=== PATIENT | female | born 1940 | race Caucasian/White ===

== ENCOUNTER → 2018-04-25 | Outpatient (CLI) | payer MEDICARE, BC ==
[2015-10-09 14:55] VITALS: BP 133/68
[~2018-04-25] MED LIST: CALC-98 PO; COLE1TAB2 PO; CYAN10005 PO; DOCU-109 PO; GINK30CA PO; GLUC-99 PO; HYDR-2761 PO; LISI10TA2 PO; MULT-246 PO; RANI-376 PO; RANI150T2 PO; SERT50TA PO; VITA200C28 PO
--- NOTE | 2018-04-25 13:51 | CARD ---
MR#: [id number] Date of Study: 04/25/2018 Ordering Physician: JUSTIN UREÑA, Referring Physician: JUSTIN UREÑA, Tech: Shazia Gomes APPROVED REPORT EXAM: Two-dimensional and M-mode echocardiogram with Doppler and color Doppler. Other Information Quality : AverageHR: 71bpm INDICATION Palpitations Murmur RISK FACTORS Hypertension Hyperlipidemia Previous smoker 2D DIMENSIONS RVDd2.6 (2.9-3.5cm)Left Atrium(2D)2.4 (1.6-4.0cm) IVSd1.1 (0.7-1.1cm)Aortic Root(2D)3.0 (2.0-3.7cm) LVDd4.7 (3.9-5.9cm)LVOT Diameter2.0 (1.8-2.4cm) PWd1.1 (0.7-1.1cm)LVDs3.0 (2.5-4.0cm) FS (%) 34.8 %SV64.4 ml LVEF(%)64.0 (>50%) Aortic Valve AoV Peak Alexandru.143.5cm/sAoV VTI31.0cm AO Peak GR.8.2mmHgLVOT Peak Alexandru.95.6cm/s LVOT VTI 20.42cmAO Mean GR.5mmHg RL (VMAX)1.48wc7SMG (VTI)2.11cm2 Mitral Valve MV E Vquwtrqk14.9cm/sMV DECEL WXGC329ij MV A Dznxpgee225.3cm/sMV UNS59my E/A Ratio0.9MVA (PHT)3.17cm2 TDI E/Lateral E'9.6E/Medial E'10.5 Pulmonary Valve PV Peak Rofaupos812.6cm/sPV Peak Grad.6mmHg Tricuspid Valve TR P. Naujdewt148al/sRAP ETDFAAFX1gkLt TR Peak Gr.94saCfRKXI25ejVc Pulmonary Vein S1 Upihzjie72.2cm/sD2 Gfqaqjur24.0cm/s PVa geriotxr311jnph LEFT VENTRICLE The left ventricle is normal size. There is borderline concentric left ventricular hypertrophy. The l eft ventricular systolic function is normal. The Ejection Fraction is 60%. There is normal LV segment al wall motion. Transmitral Doppler flow pattern is Grade I-abnormal relaxation pattern. RIGHT VENTRICLE The right ventricle is normal size. There is normal right ventricular wall thickness. The right ventr icular systolic function is normal. ATRIA The left atrium size is normal. The right atrium size is normal. Interatrial septum is thickened. AORTIC VALVE The aortic valve is normal in structure and function. Doppler and Color Flow revealed no significant aortic regurgitation. There is no significant aortic valvular stenosis. MITRAL VALVE The mitral valve is normal in structure and function. There is no evidence of mitral valve prolapse. There is no mitral valve stenosis. Doppler and Color-flow revealed trace mitral regurgitation. TRICUSPID VALVE The tricuspid valve is normal in structure and function. Doppler and Color Flow revealed trace to mil d tricuspid regurgitation. There is no tricuspid valve stenosis. PULMONIC VALVE The pulmonic valve is not well visualized. Doppler and Color Flow revealed trace pulmonic valvular re gurgitation. GREAT VESSELS The aortic root is normal in size. The IVC is dilated and collapses >50% with inspiration. PERICARDIAL EFFUSION There is no evidence of significant pericardial effusion. Critical Notification Critical Value: No <Conclusion> The left ventricular systolic function is normal. The Ejection Fraction is 60%. There is normal LV segmental wall motion. Transmitral Doppler flow pattern is Grade I-abnormal relaxation pattern. Trace mitral regurgitation. Trace to mild tricuspid regurgitation. There is no evidence of significant pericardial effusion. Signed by : Deacon Jeff, Electronically Approved : 04/25/2018 13:51:10
== END | disposition home or self-care (01) ==
LOC: ECHO 10:49
PROVIDERS: ATTEND Internal Medicine Cardiovascular Disease
DX: I11.9 Hypertensive heart disease without heart failure (principal); E78.5 Hyperlipidemia, unspecified; R00.8 Other abnormalities of heart beat; Z87.891 Personal history of nicotine dependence
CPT/HCPCS: 93306

== ENCOUNTER → 2020-06-22 | Outpatient (CLI) | payer BC, MEDICARE ==
[2015-10-09 14:55] VITALS: BP 133/68
[~2020-06-22] MED LIST changes: +CYAN-25 PO; -CYAN10005 PO; +LISI10TA16 PO; -LISI10TA2 PO
--- NOTE | 2020-06-22 15:50 | CARD ---
MR#: [id number] Date of Study: 06/22/2020 Ordering Physician: ANT MORENO, Referring Physician: ANT MORENO, Tech: Rianna Mayfield [facility] APPROVED REPORT EXAM: Two-dimensional and M-mode echocardiogram with Doppler and color Doppler. Other Information Quality : AverageHR: 77bpm Rhythm : NSR INDICATION Palpitations RISK FACTORS Hypertension Obesity Hyperlipidemia 2D DIMENSIONS RVDd2.8 (2.9-3.5cm)Left Atrium(2D)4.5 (1.6-4.0cm) IVSd1.2 (0.7-1.1cm)Aortic Root(2D)3.1 (2.0-3.7cm) LVDd3.9 (3.9-5.9cm)LVOT Diameter2.1 (1.8-2.4cm) PWd1.3 (0.7-1.1cm)LVDs2.8 (2.5-4.0cm) FS (%) 27.7 %SV35.1 ml LVEF(%)54.5 (>50%) Aortic Valve AoV Peak Alexandru.160.2cm/sAoV VTI38.2cm AO Peak GR.10.3mmHgLVOT Peak Alexandru.113.7cm/s AO Mean GR.5mmHgAVA (VMAX)2.46cm2 Mitral Valve MV E Xpksrpxf53.6cm/sMV DECEL MREE676tj MV A Htxrwhlt475.2cm/sE/A Ratio0.8 Pulmonary Valve PV Peak Sofndjvg497.7cm/s Tricuspid Valve TR P. Rcgkyvjr151kq/sTR Peak Gr.29mmHg Pulmonary Vein S1 Shtxpixc25.7cm/sD2 Oqwcmtbi67.8cm/s PVa fsjaifdf176xavu LEFT VENTRICLE The left ventricle is normal size. There is mild concentric left ventricular hypertrophy. The left ve ntricular systolic function is normal and the ejection fraction is within normal range. Estimated eje ction fraction 60-65%. There is normal LV segmental wall motion. The left ventricular diastolic funct ion and filling is normal for age. RIGHT VENTRICLE The right ventricle is normal size. There is normal right ventricular wall thickness. The right ventr icular systolic function is normal. ATRIA The left atrium size is normal. The right atrium size is normal. The interatrial septum is intact wit h no evidence for an atrial septal defect or patent foramen ovale as noted on 2-D or Doppler imaging. AORTIC VALVE The aortic valve is normal in structure and function. Doppler and Color Flow revealed no significant aortic regurgitation. There is no significant aortic valvular stenosis. MITRAL VALVE The mitral valve is normal in structure and function. There is no evidence of mitral valve prolapse. There is no mitral valve stenosis. Doppler and Color-flow revealed mild mitral regurgitation. TRICUSPID VALVE The tricuspid valve is normal in structure and function. Doppler and Color Flow revealed mild tricusp id regurgitation. Estimated PAP 32 mmHg. There is no tricuspid valve stenosis. PULMONIC VALVE Doppler and Color Flow revealed mild pulmonic valvular regurgitation. There is no pulmonic valvular s tenosis. GREAT VESSELS The aortic root is normal in size. The ascending aorta is normal in size. The IVC is normal in size a nd collapses >50% with inspiration. PERICARDIAL EFFUSION There is no evidence of significant pericardial effusion. Critical Notification Critical Value: No <Conclusion> The left ventricular systolic function is normal and the ejection fraction is within normal range. E stimated ejection fraction 60-65%. There is normal LV segmental wall motion. Signed by : Ant Moreno, Electronically Approved : 06/22/2020 15:50:07
== END ==
LOC: ECHO 09:51
PROVIDERS: ATTEND Internal Medicine Cardiovascular Disease
DX: I08.8 Other rheumatic multiple valve diseases (principal); I11.9 Hypertensive heart disease without heart failure
CPT/HCPCS: 93306

== ENCOUNTER → 2020-09-18 | Outpatient (CLI) | payer MEDICARE, BC ==
[2015-10-09 14:55] VITALS: BP 133/68
--- NOTE | 2020-09-18 15:06 | RAD ---
EXAM: Left index finger, 3 views. HISTORY: Digital mucous cyst. COMPARISON: None. FINDINGS: 3 views of the left index finger are obtained. There is slight ulnar deviation of the secon d and third distal phalanges and radial deviation of the fifth distal phalanx. There is associated albert int space narrowing due to osteoarthritis at these levels. There is soft tissue swelling involving th e dorsal distal second phalange at the base of the distal phalanx. No foreign body is seen. There is internal fixation of a healed distal radial metaphyseal fracture. 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 There is mild first carpometacarpal joint and metacarpophalangeal joint osteoarthri tis. IMPRESSION: 1. Soft tissue swelling along the distal dorsal aspect of the second phalange, at the proximal aspect of the distal phalanx. No foreign body or fracture is seen. 2. Mild wrist and hand osteoarthritis, described above. 3. Internal fixation of a healed distal radial fracture. There is also a chronic nonunited ulnar styl oid fracture. Electronically signed by: Shasha Fraser MD (09/18/2020 3:04 PM) [id number]
== END ==
LOC: RAD 14:05
PROVIDERS: ATTEND Plastic Surgery
DX: S52.612A Displaced fracture of left ulna styloid process, initial encounter for closed fracture (principal); M19.042 Primary osteoarthritis, left hand; M19.032 Primary osteoarthritis, left wrist; M67.442 Ganglion, left hand; M79.89 Other specified soft tissue disorders; X58.XXXA Exposure to other specified factors, initial encounter; Y93.9 Activity, unspecified; Y92.89 Other specified places as the place of occurrence of the external cause; Y99.8 Other external cause status
CPT/HCPCS: 73140

== ENCOUNTER → 2020-10-30 | Outpatient (CLI) | payer MEDICARE ==
[2015-10-09 14:55] VITALS: BP 133/68
[~2020-10-30] MED LIST changes: +ACET325T9 PO; +IBUP-1007 PO; +LOSA-73 PO
== END ==
LOC: LAB 12:07
PROVIDERS: ATTEND Plastic Surgery
DX: Z01.812 Encounter for preprocedural laboratory examination (principal); Z20.822 Contact with and (suspected) exposure to COVID-19; M67.442 Ganglion, left hand
CPT/HCPCS: U0003; U0005

== ENCOUNTER 2020-11-02 11:13 | Day surgery (SDC) | payer MEDICARE ==
[~2020-11-02] VITALS: Ht 157.5 cm; Wt 69.5 kg
[~2020-11-02 11:13] MED LIST changes: -ACET325T9 PO; +HYDROmorphone 2 MG/ML VIAL IVP PRN; -IBUP-1007 PO; +IV RINGERS,LACTATED 1000ML 1,000 ML IV SCH; +LIDOCAINE 1% PF 30 ML VIAL. ONE; -LOSA-73 PO; +MORPHINE SULFATE 2 MG/ML INJ. IVP PRN; +PROCHLORPERAZINE 10 MG/2 ML VIAL. IVP PRN; +ceFAZolin SODIUM IV Push 1 GM VIAL. IVP PRN; +fentaNYL PF VIAL 100 MCG/2 ML VIAL IVP PRN
[2020-11-02] MEDS ORDERED: DEXAMETHASONE SOD PHOS 4 MG/ML VIAL ONE (11:36)
[2020-11-02] MEDS ORDERED: LIDOCAINE 2% PF 5 ML VIAL. ONE (11:36)
[2020-11-02] MEDS ORDERED: PROPOFOL 10 MG/ML (20ML) VIAL. IV ONE (11:36)
[2020-11-02] MEDS ORDERED: ONDANSETRON PF 4 MG/2 ML VIAL. ONE (11:36)
[2020-11-02] MEDS ORDERED: fentaNYL PF VIAL 100 MCG/2 ML VIAL ONE (11:37)
[2020-11-02] MEDS ORDERED: LOSA-73 PO (12:07)
[2020-11-02] MEDS ORDERED: ceFAZolin SODIUM IV Push 1 GM VIAL. IVP ONE (13:11)
[2020-11-02] MEDS ORDERED: BACITRACIN TOPICAL OINT PACKET. TP ONE (13:31)
[2020-11-02 14:22] VITALS: BP 164/75
[2020-11-02] MEDS ORDERED: ACET325T9 PO (14:31)
[2020-11-02] MEDS ORDERED: IBUP-1007 PO (14:32)
--- NOTE | 2020-11-02 14:52 | PDOC4 ---
OPERATIVE NOTE Date: Date: Nov 02, 2020 Pre-Op Diagnosis: Digital mucous cyst of the left index finger Post-Op Diagnosis: Same Procedure Performed: Excision digital mucous cyst of left index finger Surgeon: Taina Dexter MD Anesthesia Type: Sedation with digital block Blood Loss: Minimal Specimans Obtained: None Findings: See operative note Complications: None Operative Note: Indication This is an 80-year-old female with pain and a recurrent digital mucous cyst of her left index finger. The patient understands the benefits, alternatives, as well as the risks of bleeding, infection, joint sepsis, wound healing concerns, injury to surrounding tendons, vessels, nerves, need for additional procedures and desires to proceed. Procedure Informed consent was obtained in the perioperative holding area and the presence of the patient's daughter. The patient was brought to the operating room where a timeout was performed to identify the patient and the procedure. SCDs were in place and functioning. 2 g of Ancef were given intravenously. The patient was sedated. A digital block was performed with 1% plain lidocaine. A tourniquet was fashioned to the left finger. A vertical incision was made just radial to the digital mucous cyst. Dissection was taken down through the subcutaneous tissues to the region between the extensor tendon and the collateral ligament. An incision was made just overlying the DIP joint at this level and a rongeur was used to remove osteophytes. Dissection proceeded to identify the stalk of the cystic sac. The stalk was identified and excised as was the base of the cyst. The roof of the cyst was left intact due to its attachment to the overlying attenuated skin. The area was irrigated with saline. Hemostasis was assured prior to closure of the skin with 5-0 nylon simple interrupted sutures and 5-0 chromic along the area of the nailbed. The patient tolerated the procedure well was transferred to the PACU in stable condition. TAINA DEXTER MD Nov 02, 2020 14:52
== END 2020-11-02 15:02 | disposition home or self-care (01) ==
LOC: SURG 11:13
PROVIDERS: ATTEND Plastic Surgery
DX: M67.442 Ganglion, left hand (principal); M25.742 Osteophyte, left hand; I10 Essential (primary) hypertension; J44.9 Chronic obstructive pulmonary disease, unspecified; K21.9 Gastro-esophageal reflux disease without esophagitis; M19.90 Unspecified osteoarthritis, unspecified site; M81.0 Age-related osteoporosis without current pathological fracture; F41.9 Anxiety disorder, unspecified; Z87.891 Personal history of nicotine dependence; Z90.49 Acquired absence of other specified parts of digestive tract; Z98.890 Other specified postprocedural states; Z79.899 Other long term (current) drug therapy; Z91.041 Radiographic dye allergy status; Z91.040 Latex allergy status; Z88.2 Allergy status to sulfonamides; Z88.6 Allergy status to analgesic agent
CPT/HCPCS: 26160; 64450; A4930; J0690; J2405; J2704; J3010; J3490; J1100

== ENCOUNTER 2021-04-09 10:11 | Emergency (ER) | payer MEDICARE ==
[~2021-04-09] VITALS: Ht 154.9 cm; Wt 67.7 kg
[~2021-04-09 10:11] MED LIST changes: +ACET325T9 PO; -HYDROmorphone 2 MG/ML VIAL IVP PRN; +IBUP-1007 PO; -IV RINGERS,LACTATED 1000ML 1,000 ML IV SCH; -LIDOCAINE 1% PF 30 ML VIAL. ONE; +LOSA-73 PO; -MORPHINE SULFATE 2 MG/ML INJ. IVP PRN; -PROCHLORPERAZINE 10 MG/2 ML VIAL. IVP PRN; -ceFAZolin SODIUM IV Push 1 GM VIAL. IVP PRN; -fentaNYL PF VIAL 100 MCG/2 ML VIAL IVP PRN
[2021-04-09 10:59] LABS: BASO % 0 % (0-3); EOS # 0.2 x10^3/uL (0.0-0.7); EOS % 2 % (0-3); HEMATOCRIT 45.1 % (36.0-47.0); HEMOGLOBIN 14.5 g/dL (12.0-15.5); LYMPH # 1.6 x10^3/uL (1.0-4.8); LYMPH % 15 % (24-48); MEAN CORPUSCULAR HEMOGLOBIN 30 pg (25-35); MEAN CORPUSCULAR HGB CONC 32 g/dL (31-37); MEAN CORPUSCULAR VOLUME 92 fL (79-100); MONO # 0.8 x10^3/uL (0.0-1.1); MONO % 8 % (0-9); NEUT % 75 % (31-73); PLATELET COUNT 232 x10^3/uL (140-400); RED BLOOD COUNT 4.91 x10^6/uL (3.50-5.40); RED CELL DISTRIBUTION WIDTH 13.4 % (11.5-14.5); WHITE BLOOD COUNT 10.7 x10^3/uL (4.0-11.0)
[2021-04-09 11:12] LABS: CALCIUM 8.6 mg/dL (8.5-10.1); GFR 53.1; POTASSIUM 3.9 mmol/L (3.5-5.1)
[2021-04-09 11:18] LABS: ALBUMIN 3.6 g/dL (3.4-5.0); ALBUMIN/GLOBULIN RATIO 1.1 (1.0-1.7); MAGNESIUM 2.1 mg/dL (1.8-2.4); TOTAL BILIRUBIN 0.5 mg/dL (0.2-1.0)
--- NOTE | 2021-04-09 12:07 | RAD ---
Single AP view of the chest. Comparison: None. Indication: Palpitations Findings: The heart is enlarged. There is no pneumothorax or effusion. No air space or interstitial disease. Impression: 1. No acute cardiopulmonary process. Electronically signed by: Weston Jennings MD (04/09/2021 12:05 PM) [id number]
--- NOTE | 2021-04-09 12:39 | PHYS DOC ---
Past Medical History Past Medical History: Anxiety, Hypertension Past Surgical History: Cholecystectomy Additional Past Surgical Histo: CATERACT REMOVAL, Smoking Status: Former Smoker Additional Information: STOPPED AT 48 YEARS OF AGE Alcohol Use: None General Adult EDM: Chief Complaint: Palpitations HPI: HPI: Patient is an 80-year-old female that presents today with palpitations. Patient states she was at a doctor's appointment today and felt that her heart racing, she then came here to the emergency department for further evaluation. Patient states she has had multiple episodes of this in the past and has worn a Holter monitor and that has not shown any abnormalities or arrhythmias, she states she saw cardiology approximately 1 year ago and they discharged her from her care. Patient denies chest pain, shortness of air, nausea or vomiting, or diaphoresis with these palpitations. Patient has a past medical history of hypertension, and she does take an aspirin a day. Review of Systems: Review of Systems: Constitutional: Denies fever or chills. [] Eyes: Denies change in visual acuity. [] HENT: Denies nasal congestion or sore throat. [] Respiratory: Denies cough or shortness of breath. [] Cardiovascular: Palpitations denies chest pain or edema. [] GI: Denies abdominal pain, nausea, vomiting, bloody stools or diarrhea. [] : Denies dysuria. [] Musculoskeletal: Denies back pain or joint pain. [] Integument: Denies rash. [] Neurologic: Denies headache, focal weakness or sensory changes. [] Endocrine: Denies polyuria or polydipsia. [] Lymphatic: Denies swollen glands. [] Psychiatric: Denies depression or anxiety. [] Heart Score: C/O Chest Pain: N/A Risk Factors: Risk Factors: DM, Current or recent (<one month) smoker, HTN, HLP, family history of CAD, obesity. Risk Scores: Score 0 - 3: 2.5% MACE over next 6 weeks - Discharge Home Score 4 - 6: 20.3% MACE over next 6 weeks - Admit for Clinical Observation Score 7 - 10: 72.7% MACE over next 6 weeks - Early Invasive Strategies Allergies: Allergies: Allergies Coded Allergies Type Severity Reaction Last Updated Verified Iodinated Contrast Media Allergy Intermediate 11/02/20 Yes Sulfa (Sulfonamide Antibiotics) Allergy Intermediate 11/02/20 Yes latex Allergy Intermediate 11/02/20 Yes morphine Adverse Reaction Intermediate Nausea, Vomiting 11/02/20 Yes Physical Exam: PE: Constitutional: Well developed, well nourished, no acute distress, non-toxic vin earance. [] HENT: Normocephalic, atraumatic, bilateral external ears normal, oropharynx moist, no oral exudates, nose normal. [] Eyes: PERRLA, EOMI, conjunctiva normal, no discharge. [] Neck: Normal range of motion, no tenderness, supple, no stridor. [] Cardiovascular: Sinus rhythm with an episode of tachycardia noted, appears to be A. fib on the telemetry strip Lungs & Thorax: Bilateral breath sounds clear to auscultation [] Abdomen: Bowel sounds normal, soft, no tenderness, no masses, no pulsatile masses. [] Skin: Warm, dry, no erythema, no rash. [] Back: No tenderness, no CVA tenderness. [] Extremities: No tenderness, no cyanosis, no clubbing, ROM intact, no edema. [] Neurologic: Alert and oriented X 3, normal motor function, normal sensory function, no focal deficits noted. [] Psychologic: Affect normal, judgement normal, mood normal. [] Current Patient Data: Labs: Laboratory Tests Test 04/09/21 10:50 White Blood Count 10.7 x10^3/uL (4.0-11.0) Red Blood Count 4.91 x10^6/uL (3.50-5.40) Hemoglobin 14.5 g/dL (12.0-15.5) Hematocrit 45.1 % (36.0-47.0) Mean Corpuscular Volume 92 fL (79-100) Mean Corpuscular Hemoglobin 30 pg (25-35) Mean Corpuscular Hemoglobin Concent 32 g/dL (31-37) Red Cell Distribution Width 13.4 % (11.5-14.5) Platelet Count 232 x10^3/uL (140-400) Neutrophils (%) (Auto) 75 % (31-73) H Lymphocytes (%) (Auto) 15 % (24-48) L Monocytes (%) (Auto) 8 % (0-9) Eosinophils (%) (Auto) 2 % (0-3) Basophils (%) (Auto) 0 % (0-3) Neutrophils # (Auto) 8.0 x10^3/uL (1.8-7.7) H Lymphocytes # (Auto) 1.6 x10^3/uL (1.0-4.8) Monocytes # (Auto) 0.8 x10^3/uL (0.0-1.1) Eosinophils # (Auto) 0.2 x10^3/uL (0.0-0.7) Basophils # (Auto) 0.0 x10^3/uL (0.0-0.2) Sodium Level 148 mmol/L (136-145) H Potassium Level 3.9 mmol/L (3.5-5.1) Chloride Level 110 mmol/L (98-107) H Carbon Dioxide Level 26 mmol/L (21-32) Anion Gap 12 (6-14) Blood Urea Nitrogen 14 mg/dL (7-20) Creatinine 1.0 mg/dL (0.6-1.0) Estimated GFR (Cockcroft-Gault) 53.1 BUN/Creatinine Ratio 14 (6-20) Glucose Level 94 mg/dL (70-99) Calcium Level 8.6 mg/dL (8.5-10.1) Magnesium Level 2.1 mg/dL (1.8-2.4) Total Bilirubin 0.5 mg/dL (0.2-1.0) Aspartate Amino Transferase (AST) 17 U/L (15-37) Alanine Aminotransferase (ALT) 31 U/L (14-59) Alkaline Phosphatase 92 U/L (46-116) Troponin I High Sensitivity 16 ng/L (4-50) OG-Vje-J-Type Natriuretic Peptide 534 pg/mL (0-449) H Total Protein 7.0 g/dL (6.4-8.2) Albumin 3.6 g/dL (3.4-5.0) Albumin/Globulin Ratio 1.1 (1.0-1.7) Laboratory Tests 04/09/21 10:50 Laboratory Tests 04/09/21 10:50 Vital Signs: Vital Signs Date Time Temp Pulse Resp B/P (MAP) Pulse Ox O2 Delivery O2 Flow Rate FiO2 04/09/21 13:14 72 22 141/67 (91) 97 Room Air 04/09/21 12:44 72 18 138/63 (88) 96 Room Air 2/25/22 12:14 86 24 136/62 (86) 96 Room Air 04/09/21 11:44 92 25 126/74 (91) 96 Room Air 04/09/21 11:16 98.1 94 20 142/65 (90) 97 Room Air 98.1 04/09/21 10:44 98.1 96 20 148/67 (94) 96 Room Air 98.1 04/09/21 10:29 98.1 105 16 139/67 (91) 97 Room Air 98.1 Vital Signs Date Time Temp Pulse Resp B/P (MAP) Pulse Ox O2 Delivery O2 Flow Rate FiO2 04/09/21 12:14 86 24 136/62 (86) 96 Room Air 04/09/21 11:16 98.1 98.1 EKG: EKG: [] Radiology/Procedures: Radiology/Procedures: REASON: palpations PROCEDURE: CHEST AP ONLY Single AP view of the chest. Comparison: None. Indication: Palpitations Findings: The heart is enlarged. There is no pneumothorax or effusion. No air space or interstitial disease. Impression: 1. No acute cardiopulmonary process. Electronically signed by: Weston Jennings MD (04/09/2021 12:05 PM) [id number][] Course & Med Decision Making: Course & Med Decision Making Pertinent Labs and Imaging studies reviewed. (See chart for details) [address] Mane from the cardiology service he recommends that the p atient be discharged home, and the office will follow up with her next week to get an appointment with Dr. Ervin next week for further management of these palpitations. Patient is to continue all her home medications as prescribed. I did speak to patient and family member at the bedside, patient denies chest pain, shortness of air, or any other feelings of palpitations while in the department, and they are agreeable to the plan of care and verbalized understanding. Dragon Disclaimer: Dragon Disclaimer: This electronic medical record was generated, in whole or in part, using a voice recognition dictation system. Departure Departure Impression: Primary Impression: Palpitations Disposition: 01 HOME / SELF CARE / HOMELESS Condition: STABLE Referrals: FINN ALDANA APRN (PCP) KIRK ERVIN MD Patient Instructions: Palpitations Additional Instructions: Continue your home medications as previously prescribed Dr. Ervin's office will call you on Monday to make a follow-up appointment next week Return to the emergency department if you experience palpitations that are associated with chest pain, shortness of air, sweats, or nausea and vomiting. DELIA CABRERA APRN Apr 09, 2021 12:39
[2021-04-09 13:14] VITALS: BP 141/67
--- NOTE | 2021-04-10 02:23 | EKG ---
[facility] [address] [place] [address] Test Date: 2021-04-09 Test Time: 10:16:04 Pat Name: TONO ROSSI Department: Room: Gender: F Verifying Specialist: : 1940 Requested By: DELIA CABRERA Order Number: [id number] Reading MD: Konrad Loja Measurements Intervals [place] Rate: 111 P: -56 [place]: 142 QRS: 28 QRSD: 82 T: 54 QT: 288 QTc: 395 Interpretive Statements SINUS TACHYCARDIA COMPLEX(ES) WITH ABERRANT INTRAVENTRICULAR CONDUCTION LEFT ATRIAL ABNORMALITY Electronically Signed On 04-11-2021 18:02:18 NETWORK DESKTOP SUPPORT SPECIALIST by Konrad Loja
== END 2021-04-09 13:27 | disposition home or self-care (01) ==
LOC: ER 10:11
DX: R00.2 Palpitations (principal); I10 Essential (primary) hypertension; F41.9 Anxiety disorder, unspecified; Z87.891 Personal history of nicotine dependence; Z88.2 Allergy status to sulfonamides; Z88.5 Allergy status to narcotic agent; Z91.040 Latex allergy status; Z91.041 Radiographic dye allergy status
CPT/HCPCS: 36415; 71045; 80053; 83735; 83880; 84484; 85025; 93005; 99285-25

== ENCOUNTER → 2021-05-05 | Outpatient (CLI) | payer MEDICARE ==
[2021-04-09 13:14] VITALS: BP 141/67
--- NOTE | 2021-05-05 15:46 | RAD ---
Left lower extremity venous duplex study Clinical History: Lower extremity pain Technique: Using a combination of real time ultrasound imaging and color-flow and pulse Doppler imagi ng techniques, including spectral analysis, graded compression and augmentation, duplex evaluation of the deep venous system of the left lower extremity was performed. Multiple images were obtained. Findings: There is no sonographic evidence of deep venous thrombosis involving the visualized deep ve nous structures of the left lower extremity Impression: No evidence of deep venous thrombosis involving the left lower extremity Electronically signed by: Justin Javier MD (05/05/2021 3:44 PM) [id number]
== END ==
LOC: US 15:00
PROVIDERS: ATTEND Nurse Practitioner Family
DX: M79.662 Pain in left lower leg (principal); M79.89 Other specified soft tissue disorders
CPT/HCPCS: 93971